=== PATIENT | female | born 1940 | race Two or more races ===

== ENCOUNTER 2022-08-02 00:49 | Inpatient (IN) | payer OTHER ==
[~2022-08-02] VITALS: Ht 157.5 cm; Wt 63.5 kg
--- NOTE | 2022-08-02 01:00 | NUR ---
TO ER BED 2. [id number]. SLIP AND FELL C/O L LATERAL HIP AND L LATERAL RIB AREA PAIN. RR EVEN AND NON LABORED. CONNECTED TO MONITOR. AWAITING MD SHELLEY
--- NOTE | 2022-08-02 01:50 | NUR ---
XRAY AT BEDSIDE
[2022-08-02] MEDS ORDERED: ACETAMINOPHEN 325 MG TABLET ONE (02:26)
[2022-08-02] MEDS ORDERED: ACETAMINOPHEN 325 MG TABLET PO ONE (02:30)
--- NOTE | 2022-08-02 04:42 | NUR ---
COVID SWAB DONE AND SENT TO LAB
--- NOTE | 2022-08-02 05:14 | NUR ---
IV LINE ESTABLISHED, [id number]
--- NOTE | 2022-08-02 05:15 | NUR ---
BLOOD COLLECTED AND SENT TO LAB
[2022-08-02] MEDS ORDERED: ONDANSETRON HCL/PF 4 MG/2 ML VIAL ONE (05:18)
[2022-08-02] MEDS ORDERED: MORPHINE SULFATE INJ 4 MG/ML DISP.SYRIN ONE (05:18)
[2022-08-02] MEDS ORDERED: ONDANSETRON HCL/PF 4 MG/2 ML VIAL IVP PRN (05:30)
[2022-08-02] MEDS ORDERED: MORPHINE SULFATE INJ 2 MG/ML DISP.SYRIN IV ONE (05:30)
[2022-08-02] MEDS ORDERED: ZOLPIDEM TARTRATE 5 MG TABLET PO PRN (05:30)
[2022-08-02] MEDS ORDERED: ACETAMINOPHEN 325 MG TABLET PO PRN (05:30)
[2022-08-02] MEDS ORDERED: MAGNESIUM HYDROXIDE 30 ML UDC PO PRN (05:30)
[2022-08-02] MEDS ORDERED: Z GUARD REMEDY 4 OZ OINT TP PRN (05:30)
[2022-08-02] MEDS ORDERED: MORPHINE SULFATE INJ 2 MG/ML DISP.SYRIN IV PRN (05:30)
[2022-08-02] MEDS ORDERED: MAG HYDROX/AL HYDROX/SIMETH 30 ML UDC PO PRN (05:30)
[2022-08-02] MEDS ORDERED: ONDANSETRON HCL/PF - ER 4 MG/2 ML VIAL IV ONE (05:30)
[2022-08-02 05:36] LABS: BASOPHILS % (AUTO) 0.2 % (0.0-2.0); HEMATOCRIT 43 % (33-45); HEMOGLOBIN 13.9 g/dL (11.5-14.8); LYMPHOCYTES # (AUTO) 0.8 K/uL (0.8-4.8); LYMPHOCYTES % (AUTO) 5.7 % (20.0-44.0); MEAN CORPUSCULAR HGB CONC 32 g/dl (31.0-36.0); MEAN CORPUSCULAR VOLUME 91 fL (82-100); MONOCYTES # (AUTO) 0.7 K/uL (0.1-1.30); MONOCYTES % (AUTO) 4.9 % (2.0-12.0); NEUTROPHILS # (AUTO) 12.2 K/uL (1.8-8.9); NEUTROPHILS % (AUTO) 89.2 % (43.0-81.0); PLATELET COUNT (AUTO) 145 K/uL (150-450); WHITE BLOOD COUNT (AUTO) 13.7 K/uL (4.3-11.0)
[2022-08-02 05:54] LABS: CALCIUM, SERUM 12.2 mg/dL (8.5-10.1); CREATININE 0.7 mg/dL (0.6-1.3); POTASSIUM 3.7 mmol/L (3.5-5.1)
--- NOTE | 2022-08-02 06:04 | NUR ---
MRSA SWAB COLLECTED AND SENT TO LAB. PATIENT'S BELONGINGS LIST DONE.
--- NOTE | 2022-08-02 07:45 | NUR ---
PROTONIX PO GIVEN INDICATED; TAKEN WELL.
[2022-08-02] MEDS ORDERED: PANTOPRAZOLE 40 MG TABLET.DR PO ONE (07:49)
[2022-08-02] MEDS: PANTOPRAZOLE 40 MG TABLET.DR PO SCH (07:49)
--- NOTE | 2022-08-02 07:54 | NUR ---
room [id number]
[2022-08-02 08:00] VITALS: BP 111/48
--- NOTE | 2022-08-02 08:01 | NUR ---
PT REPORT GIVEN TO LELE DAY
--- NOTE | 2022-08-02 08:12 | NUR ---
[facility],
--- NOTE | 2022-08-02 08:33 | NUR ---
PT TRANSFERRED TO 324 VIA GURNEY. WARM HANDOFF GIVEN TO RN ASSIGNED.
[2022-08-02 09:00] VITALS: BP 139/80
--- NOTE | 2022-08-02 09:00 | NUR ---
MS DYEING MACHINE TENDER NOTES: RECEIVED PT FROM ER STAFF 0800. PT IS MAINLY GUYANESE/CYMRAES SPEAKING BUT UNDERSTAND FAROESE. A/OX4, ABLE TO MAKE NEEDS KNOWN. NO S/S OF SOB AND ACUTE DISTRESS AT THE MOMENT, ON RA TOLERATING WELL, O2 SAT = 96%. PT REPORTS PAIN LEVEL 2-3/10 BUT REFUSES MEDICATION AT THIS TIME. PER PT, IF SHE DOESN'T CHANGE POSITION, PAIN IS TOLERABLE. VITALS AT ADMISSION WNL- BP- 139/80, HR- 103, TEMP -97.7, RR- 18. ORIENTED TO STAFF AND UNIT, GIVEN CALL LIGHT AND ENCOURAGED TO CALL FOR HELP NEEDED, PT NODDED. SAFETY MEASURES IN PLACE, HOB ELEVATED, BED LOCKED AT LOWEST POSITION, SIDE RAILS UPX2, TABLE WITHIN REACH, WILL CARRY OUT CAREPLAN THROUGHOUT SHIFT.
[2022-08-02] MEDS ORDERED: [UNRECOGNIZED DRUG - OTHER] PO (09:29)
[2022-08-02 09:30] VITALS: BP 139/80
[2022-08-02] MEDS: IV NS 0.9% 1,000 ML IV PRN (10:21)
--- NOTE | 2022-08-02 11:33 | NUR ---
RN NOTE - TYLER NICHOLAS ORDERED HEMO CONSULT FOR PT. TYLER REYES NOTIFIED
[2022-08-02 12:00] VITALS: BP 110/53
--- NOTE | 2022-08-02 12:28 | NUR ---
MS RN NOTES: PT TRANSPORTED TO RADIOLOGY BY RAD STAFF VIA GURNEY, PT HAS NO S/S OF ACUTE DISTRESS OR SOB ON RA AT THE MOMENT.
[2022-08-02 14:22] LABS: C-REACTIVE PROTEIN 0.6 mg/dL (0.0-0.9); THYROID STIMULATING HORMONE 0.525 uIU/mL (0.358-3.74)
[2022-08-02 14:37] LABS: ALBUMIN 3.7 g/dL (3.4-5.0); BILIRUBIN,DIRECT 0.1 mg/dL (0.0-0.2); BILIRUBIN,TOTAL 0.3 mg/dL (0.2-1.0)
[2022-08-02 16:00] VITALS: BP 112/65
--- NOTE | 2022-08-02 18:35 | NUR ---
MS RN CLOSING NOTES: PT AWAKE, RESTING IN BED, PT IS MAINLY DANISH/TRINIDADIAN SPEAKING BUT UNDERSTANDS SOME DANISH. A/OX4, ABLE TO MAKE NEEDS KNOWN. NO S/S OF SOB AND ACUTE DISTRESS AT THE MOMENT, ON RA TOLERATING WELL. IV ACCESS AT R FA # 20 RUNNING NS @ 75ML/HR. PT REPORTS PAIN LEVEL 2-3/10 BUT REFUSES MEDICATION AT THIS TIME. PER PT, IF SHE DOESN'T CHANGE POSITION, PAIN IS TOLERABLE. PT KEPT CLEAN, DRY AND COMFORTABLE. SAFETY MEASURES IN PLACE, HOB ELEVATED, BED LOCKED AT LOWEST POSITION, SIDE RAILS UPX2, TABLE AND CALL LIGHT WITHIN REACH, WILL ENDORSE TO PM SHIFT.
--- NOTE | 2022-08-02 19:28 | NUR ---
noc rn opening received patient in bed a/ox4. no s/s of apparent distress on room air. c/o 05/10 pain-- will medicate. iv ns running @75 mls/hr. oriented and encouraged with the use of call light. safety in place. will cont. with plan of care for patient.
[2022-08-02] MEDS: HYDROCODONE/APAP 5/325MG TABLET PO PRN (19:49)
[2022-08-02 20:57] VITALS: BP 116/77
[2022-08-03] MEDS: IV NS 0.9% 1,000 ML IV PRN ×2 (00:03→21:58)
[2022-08-03 06:15] LABS: BASOPHILS % (AUTO) 0.3 % (0.0-2.0); EOSINOPHILS % (AUTO) 1.5 % (0.0-6.0); HEMATOCRIT 36 % (33-45); HEMOGLOBIN 11.9 g/dL (11.5-14.8); LYMPHOCYTES # (AUTO) 1.4 K/uL (0.8-4.8); LYMPHOCYTES % (AUTO) 17.6 % (20.0-44.0); MEAN CORPUSCULAR HGB CONC 33 g/dl (31.0-36.0); MEAN CORPUSCULAR VOLUME 92 fL (82-100); MONOCYTES # (AUTO) 0.8 K/uL (0.1-1.30); MONOCYTES % (AUTO) 9.7 % (2.0-12.0); NEUTROPHILS # (AUTO) 5.8 K/uL (1.8-8.9); NEUTROPHILS % (AUTO) 70.9 % (43.0-81.0); PLATELET COUNT (AUTO) 110 K/uL (150-450); WHITE BLOOD COUNT (AUTO) 8.2 K/uL (4.3-11.0)
[2022-08-03 06:30] LABS: CARBON DIOXIDE 26 mmol/L (21-32); CHLORIDE 112 mmol/L (98-107); CREATININE 0.5 mg/dL (0.6-1.3); GLUCOSE 106 mg/dL (74-106); PHOSPHORUS 2.1 mg/dL (2.5-4.9); POTASSIUM 3.9 mmol/L (3.5-5.1); SODIUM SERUM 142 mmol/L (136-145); UREA NITROGEN, BLOOD 10 mg/dL (7-18)
--- NOTE | 2022-08-03 07:30 | NUR ---
RN MS NOTES PT IN BED, AWAKE, ALERT AND ORIENTED, DENIES PAIN OR ANY DISCOMFORT, RESPIRATIONS NORMAL, CALL LIGHT WITHIN REACH, ASSISTED WITH BEDPAN USE, NEEDS ATTENDED.
[2022-08-03 08:02] VITALS: BP 121/71
[2022-08-03] MEDS: PANTOPRAZOLE 40 MG TABLET.DR PO SCH (08:04)
[2022-08-03 08:05] VITALS: BP 121/71
[2022-08-03 12:07] LABS: *ANA ANTI-CENTROMERE B AB <0.2 AI (0.0-0.9); *ANA ANTI-DNA(DS) AB, QN <1 IU/mL (0-9); *ANA ANTI-JO-1 <0.2 AI (0.0-0.9); *ANA ANTICHROMATIN ANTIBODY <0.2 AI (0.0-0.9); *ANA RNP ANTIBODIES <0.2 AI (0.0-0.9); *ANA SJOGREN'S ANTI-SS-A <0.2 AI (0.0-0.9); *ANA SJOGREN'S ANTI-SS-B <0.2 AI (0.0-0.9); *ANAANTI-SCLERODERMA-70 AB <0.2 AI (0.0-0.9); *ANASMITH AB <0.2 AI (0.0-0.9); IMMUNOGLOBULIN A, SERUM 185 mg/dL (64-422); IMMUNOGLOBULIN G, SERUM 679 mg/dL (586-1602); IMMUNOGLOBULIN M, SERUM 10 mg/dL (26-217)
--- NOTE | 2022-08-03 12:12 | NUR ---
RN MS NOTES PT SEEN AND EXAMINED BY JUAN MATUTE, PLAN FOR SURGERY DISCUSSED WITH PT AND SON WALT, VERBALIZED UNDERSTANDING, CONSENTS SIGNED BY PT, PLAN FOR SURGERY ON WEDNESDAY, PT FOR BONE SCAN ALSO, CONSENT GIVEN, PT SEEN BY JERZY SCOTT, ORDERS GIVEN, PT EATING LUNCH AT THIS TIME, FAMILY AT BEDSIDE, NEEDS ATTENDED.
[2022-08-03] MEDS ORDERED: K PHOS NEUTRAL 250 MG TABLET PO ONE (13:00)
[2022-08-03 15:07] LABS: *SPE A/G RATIO 1.3 (0.7-1.7); *SPE ALPHA-1-GLOBULIN 0.2 g/dL (0.0-0.4); *SPE ALPHA-2-GLOBULIN 0.6 g/dL (0.4-1.0); *SPE BETA GLOBULIN 0.9 g/dL (0.7-1.3); *SPE M-SPIKE Not Observed g/dL (Not Observed)
[2022-08-03] MEDS: HYDROCODONE/APAP 5/325MG TABLET PO PRN ×2 (15:13→21:51)
[2022-08-03 15:56] VITALS: BP 124/70
--- NOTE | 2022-08-03 18:28 | NUR ---
RN MS NOTES PT ASSISTED TO NUCLEAR MED VIA BED FOR BONE SCAN, PT AWAKE, ALERT AND ORIENTED, FAMILY INFORMED OF PLAN OF CARE, ATE DINNER WITH GOOD APPETITE, VOIDING WELL, PERINEAL CARE PROVIDED NEEDED.
--- NOTE | 2022-08-03 19:30 | NUR ---
noc rn opening patient arrived in unit from radiology at 1907 while getting report. received patient in bed a/ox4. no s/s of apparent distress on room air. pain tolerable at this time. oriented and encouraged with the use of call light. safety in place. will continue with plan of care for patient.
[2022-08-03 20:00] VITALS: BP 131/74
[2022-08-04 05:54] LABS: BASOPHILS % (AUTO) 0.4 % (0.0-2.0); EOSINOPHILS % (AUTO) 2.4 % (0.0-6.0); HEMATOCRIT 37 % (33-45); LYMPHOCYTES # (AUTO) 1.1 K/uL (0.8-4.8); MEAN CORPUSCULAR HGB CONC 33 g/dl (31.0-36.0); MEAN CORPUSCULAR VOLUME 92 fL (82-100); MONOCYTES # (AUTO) 0.9 K/uL (0.1-1.30); MONOCYTES % (AUTO) 11.1 % (2.0-12.0); NEUTROPHILS # (AUTO) 5.9 K/uL (1.8-8.9); NEUTROPHILS % (AUTO) 73.1 % (43.0-81.0); PLATELET COUNT (AUTO) 114 K/uL (150-450); RED BLOOD CELL COUNT(AUTO) 4.02 MIL/uL (4.0-5.2); WHITE BLOOD COUNT (AUTO) 8.1 K/uL (4.3-11.0)
[2022-08-04 06:09] LABS: CALCIUM, SERUM 10.6 mg/dL (8.5-10.1); CARBON DIOXIDE 28 mmol/L (21-32); CHLORIDE 110 mmol/L (98-107); CREATININE 0.5 mg/dL (0.6-1.3); GLUCOSE 117 mg/dL (74-106); PHOSPHORUS 2.1 mg/dL (2.5-4.9); SODIUM SERUM 142 mmol/L (136-145); UREA NITROGEN, BLOOD 10 mg/dL (7-18)
[2022-08-04 08:00] VITALS: BP 125/72
[2022-08-04 08:06] LABS: CANCER AG, 15-3 13.9 U/mL (0.0-25.0)
[2022-08-04] MEDS: PANTOPRAZOLE 40 MG TABLET.DR PO SCH (08:14)
[2022-08-04] MEDS: SENNOSIDES/DOCUSATE SODIUM 1 TAB TABLET PO SCH (12:34)
[2022-08-04] MEDS: IV NS 0.9% 1,000 ML IV PRN (12:46)
--- NOTE | 2022-08-04 13:58 | NUR ---
RN OPENING NOTES RECEIVED PATIENT ON BED, AWAKE AND ALERT WITH ONGOING IVF RUNNING @ 75 ML/HR INFUSING WELL. WITH STABLE VITAL SIGNS, TAKEN AND RECORDED. ENCOURAGED SAFETY MEASURES AND USE OF CALL LIGHT FOR ASSISTANCE. KEPT COMFORTABLE, WILL CONTINUE TO MONITOR
[2022-08-04] MEDS: FOLIC ACID 1 MG TABLET PO SCH (14:47)
[2022-08-04] MEDS ORDERED: K PHOS NEUTRAL 250 MG TABLET PO ONE (15:00)
[2022-08-04 16:00] VITALS: BP 130/73
--- NOTE | 2022-08-04 18:51 | NUR ---
RN CLOSING NOTES: PT AWAKE, RESTING IN BED, NO S/S OF SOB AND ACUTE DISTRESS AT THE MOMENT, ON RA TOLERATING WELL. NO COMPLAIN OF PAIN ALL THROUGHOUT THE SHIFT. PLAN FOR ORIF TOMORROW Wednesday08/15/22, CONSENT SIGNED. PT KEPT CLEAN, DRY AND COMFORTABLE. SAFETY MEASURES IN PLACE, HOB ELEVATED, BED LOCKED AT LOWEST POSITION, SIDE RAILS UPX2, TABLE AND CALL LIGHT WITHIN REACH, WILL ENDORSE TO TRANSPORTATION CONSULTANT.
--- NOTE | 2022-08-04 19:30 | NUR ---
RN OPENING NOTES RECEIVED PATIENT IN BED AAOX4 SWAZI SPEAKING,FOX WELL ON RM AIR,NO SIGN SOB/DISTRESS NOTED,NO COMPLAINE OF PAIN/DISCOMFORT AT THIS TIME, WITH ONGOING IVF RUNNING @ 75 ML/HR INFUSING WELL.SAFETY MEASURES INPLACE,CALL LIGHT WITHIN REACH,WILL CONTINUE TO MONITOR
[2022-08-05] VITALS (10 sets, daily range): BP systolic 100–136; BP diastolic 60–89
[2022-08-05] MEDS: IV NS 0.9% 1,000 ML IV PRN ×2 (01:35→18:49)
--- NOTE | 2022-08-05 06:22 | NUR ---
RN CLOSING NOTES; PATIENT IN BED AAOX4 LITHUANIAN/GEORGIAN SPEAKING SOME UPPER SORBIAN,FOX WELL ON RM AIR,NO SIGN SOB/DISTRESS NOTED,NO COMPLAINE OF PAIN/DISCOMFORT DURING SHIFT,DUE MEDS GIVEN ORDER,ALL NEEDS ATTENDED,PT WAS NPO SINCE MIDNIGHT FOR PROCEDURE TODAY @ NOON, WITH ONGOING IVF RUNNING @ 75 ML/HR INFUSING WELL.SAFETY MEASURES INPLACE,CALL LIGHT WITHIN REACH,WILL ENDORSED TO NEXT SHIFT,
--- NOTE | 2022-08-05 07:12 | NUR ---
MS RN OPENING NOTES: RECEIVED PT IN BED AWAKE. SENEGALESE/TONGAN SPEAKING. A/O X 4 AND ABLE TO VERBALIZED NEEDS. NO SOB OR CARDIAC DISTRESS NOTED, AFEBRILE. ON ROOM AIR AND TOLERATING WELL. ON NPO, FOR SURGERY AT NOON TIME. NOTED WITH IV ACCESS ON RFA G20 PATENT INTACT AND INFUSING NS AT 75ML/HR. SAFETY PRECAUTIONS MAINTAINED: BED LOCKED AND IN LOWEST POSITION,SIDE RAILS UP X 2 CALL LIGHT IN EASY REACH FOR HELP. WILL MONITOR PT ACCORDINGLY.
[2022-08-05 07:18] LABS: CALCIUM, SERUM 10.3 mg/dL (8.5-10.1); CARBON DIOXIDE 24 mmol/L (21-32); CHLORIDE 112 mmol/L (98-107); CREATININE 0.5 mg/dL (0.6-1.3); GLUCOSE 103 mg/dL (74-106); PHOSPHORUS 1.7 mg/dL (2.5-4.9); POTASSIUM 3.8 mmol/L (3.5-5.1); SODIUM SERUM 141 mmol/L (136-145); UREA NITROGEN, BLOOD 9 mg/dL (7-18)
[2022-08-05] MEDS: PANTOPRAZOLE 40 MG TABLET.DR PO SCH (07:30)
[2022-08-05] MEDS: FOLIC ACID 1 MG TABLET PO SCH (09:00)
[2022-08-05] MEDS: SENNOSIDES/DOCUSATE SODIUM 1 TAB TABLET PO SCH (09:00)
--- NOTE | 2022-08-05 09:00 | NUR ---
RN NOTES: RELAYED EKG READING TO DR HYMAN.
--- NOTE | 2022-08-05 09:20 | NUR ---
RN NOTES: PATIENT REFUSED MORNING MEDS. WILL HAVE SURGERY TODAY AT NOON.
[2022-08-05] MEDS ORDERED: BUPIVACAINE 0.25% 75 MG/30 ML VIAL ONE (11:00)
[2022-08-05] MEDS ORDERED: VANCOMYCIN 1 GM VIAL ONE (11:00)
[2022-08-05] MEDS ORDERED: POLYMYXIN B SULFATE 0 UNITS ONE (11:01)
[2022-08-05] MEDS ORDERED: ANESTHESIA TRAY IN PYXIS 1 EA TRAY MC ONE (11:04)
[2022-08-05] MEDS ORDERED: HYDROMORPHONE INJ 2 MG/ML DISP.SYRIN ONE (11:29)
--- NOTE | 2022-08-05 11:35 | NUR ---
RN NOTES: PATIENT WAS PICKED UP BY OR TRANSPORTER VIA BED. CHECK LIST AND CONSENTS SIGNED. PT PEED USING BED HARDY. PT LEFT THE UNIT STABLE.
--- NOTE | 2022-08-05 14:57 | NUR ---
RN NOTES: PATIENT CAME BACK FROM OPERATING ROOM, S/P LEFT HIP ORIF IM NAILING AND BONE BIOPSY. ACCOMPANIED BY LELE VALERIO VIA [employer]. PATIENT AWAKE BUT SLEEPY. ALERT AND ORIENTED X 4 AND ABLE TO VERBALIZED NEEDS, NO SOB OR CARDIAC DISTRESS NOTED. ON O2 INHALATION @ 2LPM VIA NC FOR COMFORT . IV ACCESS ON RFA G#20 RUNNING NS 1L 75ML/HR PATENT AND INTACT. HUMPHREY CATHETER IN PLACE AND DRAINING CLEAR YELLOW COLORED URINE BY GRAVITY. NOTED WITH DRESSING ON LEFT HIP NO S/S OF BLEEDING OR UNUSUAL DISCHARGES. VS TAKEN BP 120/70, HR 89, O2 SAT 95% 97.5F. PT DENIES PAIN AT THIS TIME . REMOVE FC 1 DAY POST OP, RESUME DIET ONCE FULLY AWAKE. WBAT LLE. PAIN MANAGEMENT ORDERED. AND WILL MONITOR FOR ANY SIGNIFICANT CHANGES. POST OP ORDERS NOTED AND CARRIED OUT
[2022-08-05] MEDS ORDERED: HYDROCODONE/APAP 5/325MG TABLET PO PRN (15:00)
[2022-08-05] MEDS ORDERED: ACETAMINOPHEN 325 MG TABLET PO PRN (15:00)
[2022-08-05] MEDS ORDERED: SENNOSIDES 8.6 MG TABLET PO PRN (15:00)
[2022-08-05] MEDS ORDERED: BISACODYL SUPP (10 MG) 10 MG/SUPP.RECT SUPP.RECT RC PRN (15:00)
[2022-08-05] MEDS ORDERED: DOCUSATE SODIUM 100 MG CAPSULE PO PRN (15:00)
[2022-08-05] MEDS ORDERED: K PHOS NEUTRAL 250 MG TABLET PO ONE (16:00)
--- NOTE | 2022-08-05 19:33 | NUR ---
MS RN CLOSING NOTES: PATIENT LYING IN BED, AWAKE, ALERT AND ORIENTED X 4 AND ABLE TO VERBALIZED NEEDS, NO SOB OR CARDIAC DISTRESS NOTED. ON O2 INHALATION @ 2LPM VIA NC FOR COMFORT . IV ACCESS ON RFA G#20 RUNNING NS 1L 75ML/HR PATENT AND INTACT. HUMPHREY CATHETER IN PLACE AND DRAINING CLEAR YELLOW COLORED URINE BY GRAVITY DRAINED 800CC . NOTED WITH DRESSING ON LEFT HIP NO S/S OF BLEEDING OR UNUSUAL DISCHARGES. PT DENIES PAIN AT THIS TIME . SAFETY PRECAUTIONS MAINTAINED: BED LOCKED AND IN LOWEST POSITION. SIDE RAILS UP X 2. CALL LIGHT IN EASY REACH FOR HELP. ENDORSED TO NOC SHIFT FOR EMERITA.
--- NOTE | 2022-08-05 19:52 | NUR ---
RN OPENING NOTES RECEIVED PATIENT IN BED AAOX4 ERITREAN SPEAKING,FOX WELL ON RM AIR,NO SIGN SOB/DISTRESS NOTED,S/P LEFT ORIF INTRAMEDULLARY NAIL AND OPEN BIOPSY OF LEFT FEMUR,NO SIGN OF BLEEDING NOTED,NO COMPLAINE OF PAIN/DISCOMFORT AT THIS TIME, WITH ONGOING IVF RUNNING @ 75 ML/HR INFUSING WELL.SAFETY MEASURES INPLACE,CALL LIGHT WITHIN REACH,WILL CONTINUE TO MONITOR
[2022-08-05] MEDS: ANCEF 1 GM/50 ML D5W IV SCH ×2 (21:16)
[2022-08-06] MEDS: ANCEF 1 GM/50 ML D5W IV SCH ×2 (05:44)
[2022-08-06 06:11] LABS: BASOPHILS % (AUTO) 0.2 % (0.0-2.0); EOSINOPHILS % (AUTO) 0.4 % (0.0-6.0); HEMATOCRIT 31 % (33-45); HEMOGLOBIN 10.4 g/dL (11.5-14.8); LYMPHOCYTES # (AUTO) 0.9 K/uL (0.8-4.8); MEAN CORPUSCULAR HGB CONC 33 g/dl (31.0-36.0); MEAN CORPUSCULAR VOLUME 91 fL (82-100); MONOCYTES % (AUTO) 11.8 % (2.0-12.0); NEUTROPHILS # (AUTO) 6.2 K/uL (1.8-8.9); NEUTROPHILS % (AUTO) 76.6 % (43.0-81.0); PLATELET COUNT (AUTO) 136 K/uL (150-450); RED BLOOD CELL COUNT(AUTO) 3.45 MIL/uL (4.0-5.2); WHITE BLOOD COUNT (AUTO) 8.1 K/uL (4.3-11.0)
--- NOTE | 2022-08-06 06:35 | NUR ---
RN CLOSING NOTES; PATIENT IN BED AAOX4 UKRAINIAN/DIVEHI SPEAKING SOME MALAY,FOX WELL ON RM AIR,NO SIGN SOB/DISTRESS NOTED,NO COMPLAINE OF PAIN/DISCOMFORT DURING SHIFT,DUE MEDS GIVEN ORDER,ALL NEEDS ATTENDED,WITH ONGOING IVF RUNNING @ 75 ML/HR INFUSING WELL.SAFETY MEASURES INPLACE,CALL LIGHT WITHIN REACH,WILL ENDORSED TO NEXT SHIFT,
[2022-08-06 06:39] LABS: CALCIUM, SERUM 10.1 mg/dL (8.5-10.1); CREATININE 0.6 mg/dL (0.6-1.3); PHOSPHORUS 2.1 mg/dL (2.5-4.9); POTASSIUM 3.8 mmol/L (3.5-5.1)
--- NOTE | 2022-08-06 07:10 | NUR ---
MS RN OPENING NOTES: RECEIVED PT IN BED AWAKE. COMORAN/LUXEMBOURGER SPEAKING. A/O X 4 AND ABLE TO VERBALIZED NEEDS. NO SOB OR CARDIAC DISTRESS NOTED, AFEBRILE. ON O2 INHALATION @ 2LPM VIA NC AND TOLERATING WELL. NOTED WITH IV ACCESS ON RFA G20 PATENT INTACT AND INFUSING NS AT 75ML/HR. FC NOTED DRAINING CLEAR YELLOW COLORED URINE BY GRAVITY. SAFETY PRECAUTIONS MAINTAINED: BED LOCKED AND IN LOWEST POSITION,SIDE RAILS UP X 2 CALL LIGHT IN EASY REACH FOR HELP. WILL MONITOR PT ACCORDINGLY.
[2022-08-06] MEDS: PANTOPRAZOLE 40 MG TABLET.DR PO SCH (07:44)
[2022-08-06 08:00] VITALS: BP 127/77
[2022-08-06] MEDS: FOLIC ACID 1 MG TABLET PO SCH (08:25)
[2022-08-06] MEDS: HYDROCODONE/APAP 5/325MG TABLET PO PRN ×2 (08:25→23:08)
[2022-08-06] MEDS: SENNOSIDES/DOCUSATE SODIUM 1 TAB TABLET PO SCH (08:25)
[2022-08-06] MEDS: ENOXAPARIN SODIUM 40 MG/0.4 ML DISP.SYRIN SQ SCH (08:31)
--- NOTE | 2022-08-06 11:49 | NUR ---
WOUND CARE CONSULT: RECEIVED CONSULT IN ERROR FOR S/P ORIF LEFT HIP. DEFER TO SURGEON ON CASE. WILL SEE PRN.
[2022-08-06] MEDS ORDERED: NEUTRA PHOS 1 POWD.PACKET PO ONE ×2 (15:00→15:30)
[2022-08-06 16:00] VITALS: BP 114/64
--- NOTE | 2022-08-06 17:00 | NUR ---
RN NOTES: REMOVED FC. TOLERATED WELL.
--- NOTE | 2022-08-06 17:11 | NUR ---
RN NOTES: MIKE (GRANDSON) INFORMED LELE QUINTERO THAT THEYRE REFUSING CT SCANS THAT DUE TODAY AND TOMORROW.
--- NOTE | 2022-08-06 18:49 | NUR ---
MS RN CLOSING NOTES: PATIENT LYING IN BED, AWAKE, ALERT AND ORIENTED X 4 AND ABLE TO VERBALIZED NEEDS, NO SOB OR CARDIAC DISTRESS NOTED. ON O2 INHALATION @ 2LPM VIA NC FOR COMFORT . IV ACCESS ON RFA G#20 RUNNING NS 1L 75ML/HR PATENT AND INTACT. NOTED WITH DRESSING ON LEFT HIP NO S/S OF BLEEDING OR UNUSUAL DISCHARGES. PT DENIES PAIN AT THIS TIME . SAFETY PRECAUTIONS MAINTAINED: BED LOCKED AND IN LOWEST POSITION. SIDE RAILS UP X 2. CALL LIGHT IN EASY REACH FOR HELP. ENDORSED TO NOC SHIFT FOR EMERITA.
--- NOTE | 2022-08-06 20:30 | NUR ---
MS ROUGH RIB GRADER OF CARE NOTES: PATIENT LYING IN BED, AWAKE, ALERT AND ORIENTED X 4 AND ABLE TO VERBALIZED NEEDS, NO SOB OR CARDIAC DISTRESS NOTED. ON O2 INHALATION @ 2LPM VIA NC FOR COMFORT. IV ACCESS ON RFA G#20 RUNNING NS 1L 75ML/HR PATENT AND INTACT. NOTED WITH DRESSING ON LEFT HIP NO S/S OF BLEEDING OR UNUSUAL DISCHARGES. PT DENIES PAIN AT THIS TIME . SAFETY PRECAUTIONS MAINTAINED: BED LOCKED AND IN LOWEST POSITION. SIDE RAILS UP X 2. CALL LIGHT IN EASY REACH FOR HELP.
[2022-08-06 21:26] VITALS: BP 132/76
--- NOTE | 2022-08-06 23:17 | NUR ---
RN NOTES PRN NORCO GIVEN FOR 6/10 PAIN TOLERATED WELL.
[2022-08-07 05:52] LABS: BASOPHILS % (AUTO) 0.4 % (0.0-2.0); EOSINOPHILS % (AUTO) 1.5 % (0.0-6.0); HEMATOCRIT 30 % (33-45); HEMOGLOBIN 9.7 g/dL (11.5-14.8); LYMPHOCYTES # (AUTO) 0.8 K/uL (0.8-4.8); LYMPHOCYTES % (AUTO) 11.6 % (20.0-44.0); MEAN CORPUSCULAR HGB CONC 33 g/dl (31.0-36.0); MEAN CORPUSCULAR VOLUME 91 fL (82-100); MONOCYTES # (AUTO) 0.9 K/uL (0.1-1.30); NEUTROPHILS # (AUTO) 5.4 K/uL (1.8-8.9); NEUTROPHILS % (AUTO) 74.5 % (43.0-81.0); PLATELET COUNT (AUTO) 128 K/uL (150-450); RED BLOOD CELL COUNT(AUTO) 3.24 MIL/uL (4.0-5.2); WHITE BLOOD COUNT (AUTO) 7.2 K/uL (4.3-11.0)
[2022-08-07 06:41] LABS: CALCIUM, SERUM 10.9 mg/dL (8.5-10.1); CREATININE 0.6 mg/dL (0.6-1.3); MAGNESIUM 1.9 mg/dL (1.8-2.4); PHOSPHORUS 1.8 mg/dL (2.5-4.9); POTASSIUM 3.5 mmol/L (3.5-5.1)
--- NOTE | 2022-08-07 06:48 | NUR ---
MS RN CLOSING NOTES: PATIENT LYING IN BED, AWAKE, ALERT AND ORIENTED X 4 AND ABLE TO VERBALIZED NEEDS, NO SOB OR CARDIAC DISTRESS NOTED. ON O2 INHALATION @ 2LPM VIA NC FOR COMFORT. IV ACCESS ON RFA G#20 RUNNING NS 75ML/HR PATENT AND INTACT. NOTED WITH DRESSING ON LEFT HIP NO S/S OF BLEEDING PT DENIES PAIN AT THIS TIME . PAIN MANAGEMENT WAS PROVIDED NEEDED. SAFETY PRECAUTIONS MAINTAINED: BED LOCKED AND IN LOWEST POSITION. SIDE RAILS UP X 2. CALL LIGHT IN EASY REACH FOR HELP. WILL ENDORSE CARE TO DAY SHIFT NURSE.
--- NOTE | 2022-08-07 07:30 | NUR ---
RN OPENING NOTES RECEIVED PATIENT AWAKE IN BED. A/O X4, VERBALLY RESPONSIVE. NO SIGNS OF ACUTE DISTRESS NOTED. DENIES ANY PAIN AT THIS TIME. ON O2 @ 2LPM VIA N/C, NO SOB NOTED, BREATHING EVEN AND UNLABORED. NOTED WITH IV ACCESS ON RIGHT FOREARM #20G, INTACT AND PATENT, NS @ 75 ML/HR RUNNING. SAFETY MEASURE IN PLACE. BED IN LOWEST AND LOCKED POSITION. SIDE RAILS UP X2, CALL LIGHT PLACED WITHIN EASY REACH. WILL CONTINUE TO MONITOR PATIENT.
[2022-08-07] MEDS: FOLIC ACID 1 MG TABLET PO SCH (08:06)
[2022-08-07] MEDS: ENOXAPARIN SODIUM 40 MG/0.4 ML DISP.SYRIN SQ SCH (08:06)
[2022-08-07] MEDS: PANTOPRAZOLE 40 MG TABLET.DR PO SCH (08:06)
[2022-08-07] MEDS: SENNOSIDES/DOCUSATE SODIUM 1 TAB TABLET PO SCH (08:06)
--- NOTE | 2022-08-07 09:24 | NUR ---
RN NOTE PATIENT REFUSED TO DO CT HEAD AND NECK WITH CONTRAST, SON AWLT ALSO AWARE AND SAID THAT THEY DECIDED NOT TO DO THE CT FOR NOW. THEY WILL JUST DO IT SOME OTHER TIME. NELDA SANCHEZ, MADE AWARE.
[2022-08-07] MEDS ORDERED: K PHOS NEUTRAL 250 MG TABLET PO ONE (13:00)
--- NOTE | 2022-08-07 18:36 | NUR ---
RN CLOSING NOTES PATIENT IN BED, AWAKE, A/O X4, VERBALLY RESPONSIVE. NO SIGNS OF ACUTE DISTRESS NOTED. PATIENT STILL WITH C/O PAIN ON RIGHT HIP BUT TOLERABLE, ENCOURAGED PATIENT TO ASK FOR PAIN MEDICATION IF PAIN BECOMES WORSE. IV ACCESS ON RIGHT FOREARM #20G, INTACT AND PATENT WITH NS @ 75 ML/HR RUNNING. SAFETY MEASURE MAINTAINED. BED IN LOWEST AND LOCKED POSITION. SIDE RAILS UP X2, CALL LIGHT PLACED WITHIN EASY REACH. WILL ENDORSE TO NEXT SHIFT FOR CONTINUITY OF CARE.
--- NOTE | 2022-08-07 19:15 | NUR ---
MS RN NOTES RECEIVED ON BED,A/O X4,SPEAK QATARI,VISITOR AT BEDSIDE,BREATHING REGULAR,NOT IN ANY FORM OF DISTRESS.PRESENT IVF NS AT 75ML/HR RATE INFUSING WELL ON RFA SALINE LOCK VIA IV PUMP.S/P LEFT HIP ORIF ON 08/05,DRESSING INTACT AND DRY,CONTINENT OF URINE,ABLE TO USE BEDPAN.NO COMPLAINTS OF PAIN AT THE MOMENT,CALL LIGHT IN REACH,NEEDS ANTICIPATED.
[2022-08-07 20:00] VITALS: BP 124/74
[2022-08-07] MEDS: IV NS 0.9% 1,000 ML IV PRN (21:43)
--- NOTE | 2022-08-08 06:37 | NUR ---
MS RN NOTES NO SIGNIFICANT CHANGE IN STATUS.NO COMPLAINTS OF PAIN,ASSIST WITH VOIDING PER URINAL,CALL LIGJT IN REACH,NEEDS ATTENDED.
[2022-08-08 08:00] VITALS: BP 128/67
--- NOTE | 2022-08-08 08:00 | NUR ---
RN OPENING NOTE PATIENT RECEIVED IN BED, AO X 4, ABLE TO RESPONDS ALL STIMULI. IN NO ACUTE DISTRESS NOTED. RESPIRATORY EVEN AND UNLABORED ON ROOM AIR. SKIN IS WARM TO TOUCH, KEEP CLEAN/DRY. KEPT ELEVATED HOB FOR ENSURE AIRWAY AND ASPIRATION PRECAUTION, ALSO LOWEST POSITION OF THE BED, S/R UP X 3, BED ALARM IS ON AT ALL THE TIMES. ALL SAFETY PRECAUTION APPLIED. CALL LIGHT WITHIN REACH, WILL CONTINUE TO MONITOR.
[2022-08-08] MEDS: SENNOSIDES/DOCUSATE SODIUM 1 TAB TABLET PO SCH (08:33)
[2022-08-08] MEDS: PANTOPRAZOLE 40 MG TABLET.DR PO SCH (08:33)
[2022-08-08] MEDS: FOLIC ACID 1 MG TABLET PO SCH (08:34)
[2022-08-08] MEDS: ENOXAPARIN SODIUM 40 MG/0.4 ML DISP.SYRIN SQ SCH (08:35)
[2022-08-08 09:38] LABS: BASOPHILS % (AUTO) 0.4 % (0.0-2.0); EOSINOPHILS % (AUTO) 1.5 % (0.0-6.0); HEMATOCRIT 30 % (33-45); LYMPHOCYTES # (AUTO) 1.1 K/uL (0.8-4.8); LYMPHOCYTES % (AUTO) 16.4 % (20.0-44.0); MEAN CORPUSCULAR HGB CONC 34 g/dl (31.0-36.0); MEAN CORPUSCULAR VOLUME 92 fL (82-100); MONOCYTES # (AUTO) 0.9 K/uL (0.1-1.30); MONOCYTES % (AUTO) 12.6 % (2.0-12.0); NEUTROPHILS # (AUTO) 4.7 K/uL (1.8-8.9); NEUTROPHILS % (AUTO) 69.1 % (43.0-81.0); PLATELET COUNT (AUTO) 140 K/uL (150-450); RED BLOOD CELL COUNT(AUTO) 3.24 MIL/uL (4.0-5.2); WHITE BLOOD COUNT (AUTO) 6.9 K/uL (4.3-11.0)
[2022-08-08 09:48] LABS: ALANINE AMINOTRANSFERASE 17 U/L (12-78); ALBUMIN 2.3 g/dL (3.4-5.0); ALKALINE PHOSPHATASE 76 U/L (46-116); ASPARTATE AMINOTRANSFERASE 15 U/L (15-37); BILIRUBIN,TOTAL 0.7 mg/dL (0.2-1.0); CALCIUM, SERUM 11.8 mg/dL (8.5-10.1); CARBON DIOXIDE 27 mmol/L (21-32); CHLORIDE 111 mmol/L (98-107); CREATININE 0.5 mg/dL (0.6-1.3); GLUCOSE 104 mg/dL (74-106); POTASSIUM 3.8 mmol/L (3.5-5.1); SODIUM SERUM 142 mmol/L (136-145); TOTAL PROTEIN, SERUM 5.7 g/dL (6.4-8.2); UREA NITROGEN, BLOOD 10 mg/dL (7-18)
[2022-08-08] MEDS ORDERED: ENOX40DI SUBCUT (10:54)
[2022-08-08] MEDS ORDERED: CHOL400T11 PO (10:54)
[2022-08-08] MEDS ORDERED: Folic Acid PO (10:54)
[2022-08-08] MEDS ORDERED: K PHOS NEUTRAL 250 MG TABLET PO ONE (11:00)
[2022-08-08 16:00] VITALS: BP 116/91
--- NOTE | 2022-08-08 19:00 | NUR ---
PATIENT D/C TO HOME AND GIVEN DISCHARGE INSTRUCTION TO THE SON INCLUDE FOLLOW UP DR. GUTIÉRREZ AND DISCONTINUE MEDICATION. PATIENT LEFT FACILITY ACCOMPANIED BY STAFF TO THE PRIVATE CAR. PATIENT IN STABLE CONDITION.
== END 2022-08-08 19:15 | disposition home or self-care (01) | DRG 481 ==
LOC: ER 00:53 → TRANSITION 06:00 → MED 08:04
PROVIDERS: ADMIT Internal Medicine; ATTEND Nurse Practitioner Acute Care
PROC: 0QS706Z Reposition Left Upper Femur with Intramedullary Internal Fixation Device, Open Approach (ICD-10-PCS; principal; 2022-08-05)
DX: M80.852A Other osteoporosis with current pathological fracture, left femur, initial encounter for fracture (principal); D68.59 Other primary thrombophilia; W01.0XXA Fall on same level from slipping, tripping and stumbling without subsequent striking against object, initial encounter; Y92.009 Unspecified place in unspecified non-institutional (private) residence as the place of occurrence of the external cause; D69.59 Other secondary thrombocytopenia; E04.1 Nontoxic single thyroid nodule; E83.52 Hypercalcemia; K57.30 Diverticulosis of large intestine without perforation or abscess without bleeding; N28.1 Cyst of kidney, acquired; Z20.822 Contact with and (suspected) exposure to COVID-19; Z90.710 Acquired absence of both cervix and uterus; Z90.49 Acquired absence of other specified parts of digestive tract; E53.8 Deficiency of other specified B group vitamins; M89.9 Disorder of bone, unspecified; Z74.09 Other reduced mobility
CPT/HCPCS: 36415; 71045-TC; 71250-TC; 72170-TC; 73020; 73552; 73564-TC; 73700-TC; 76536-TC; 76641-TC; 77002; 77075-TC; 78306-TC; 80048-TC; 80053-TC; 80076-TC; 82040-TC; 82232; 82306; 82378; 82607-TC; 82784; 83735-TC; 83970; 84100-TC; 84155; 84165; 84439-TC; 84443-TC; 85025-TC; 85610-TC; 85730-TC; 86140-TC; 86225; 86235; 86300; 86334; 86431-TC; 86706; 86800; 86803; 86850-TC; 87040-TC; 87081-TC; 87340; 93307-TC; 94799-TC; 97110-TC; 97112-TC; 97116-TC; 97530-TC; A4217; A6209; A6253; A9503; C1713; C9803; G0378; J0690; J1100; J1170; J1650; J1885; J2270; J2405; J2704; J2765; J3370; J3490; J7030; J7060

== ENCOUNTER 2022-08-24 15:49 | Emergency (ER) | payer OTHER ==
[~2022-08-24] VITALS: Ht 162.6 cm; Wt 59.9 kg
[2022-08-24 15:49] VITALS: BP 117/72
[~2022-08-24 15:49] MED LIST: CHOL400T11 PO; ENOX40DI SUBCUT; Folic Acid PO
--- NOTE | 2022-08-24 16:10 | NUR ---
Received pt 81 yrs female here for remove suture from lt hip and lt knee
--- NOTE | 2022-08-24 16:30 | NUR ---
suture semoved by DR GOMEZ
--- NOTE | 2022-08-24 16:40 | NUR ---
lt site clean and healing no open skin
--- NOTE | 2022-08-24 17:05 | NUR ---
Patient discharged to home in stable condition. Written and verbal after care instructions given. Patient verbalizes understanding of instruction.
== END 2022-08-24 17:11 | disposition home or self-care (01) ==
LOC: ER 15:51
DX: S71.112D Laceration without foreign body, left thigh, subsequent encounter (principal); X58.XXXD Exposure to other specified factors, subsequent encounter